=== PATIENT | female | born 1975 | race Caucasian/White ===

== ENCOUNTER 2024-05-20 08:26 | Day surgery (SDC) | payer BC ==
[2024-05-20] VITALS (10 sets, daily range): BP systolic 103–122; BP diastolic 67–90; PULSE 68–78; RESP 14–16; TEMP 97.9; O2SAT 93–96
[~2024-05-20] VITALS: Ht 157.5 cm; Wt 94.5 kg
[2024-05-20] MEDS ORDERED: VITD400T PO (09:17)
[2024-05-20] MEDS ORDERED: MAGN300C (09:17)
[2024-05-20] MEDS ORDERED: ASPI81TA52 PO (09:18)
[2024-05-20] MEDS ORDERED: HYDR12.55 PO (09:19)
[2024-05-20] MEDS ORDERED: ACET-1008 PO (09:23)
[2024-05-20 09:54] LABS: BASOPHILS % (AUTO) 0.9 % (0-1); EOSINOPHILS # (AUTO) 0.1 X10'3 (0-0.9); EOSINOPHILS % (AUTO) 2.4 % (0-6); HEMATOCRIT 44.8 % (35.0-45.0); HEMOGLOBIN 15.4 g/dl (12.0-16.0); LYMPHOCYTES # (AUTO) 1.7 X10'3 (1.1-4.8); LYMPHOCYTES % (AUTO) 35.1 % (21-51); MEAN CORPUSCULAR HEMOGLOBIN 32.8 PG (27.0-31.0); MEAN CORPUSCULAR HGB CONC 34.3 g/dL (33.0-36.5); MEAN CORPUSCULAR VOLUME 95.8 FL (78-98); MONOCYTES # (AUTO) 0.5 X10'3 (0-0.9); MONOCYTES % (AUTO) 10.6 % (2-12); NEUTROPHILS # (AUTO) 2.4 X10'3 (1.8-7.7); PLATELET COUNT 258 X10'3 (140-440); RED BLOOD COUNT 4.68 X10'6 (4.20-5.60); RED CELL DISTRIBUTION WIDTH 13.5 % (11.5-14.5); WHITE BLOOD COUNT 4.7 X10'3 (4.5-11.0)
[2024-05-20 10:08] LABS: APTT 25 SECONDS (22-32); PROTHROMBIN TIME 10.1 SECONDS (9.0-12.0)
[2024-05-20 10:57] LABS: ALBUMIN 3.6 G/DL (3.4-5.0); ANION GAP 8 (8-16); BLOOD UREA NITROGEN 12 MG/DL (7-18); BUN/CREATININE RATIO 14.8 (10.0-20.0); CALCIUM 8.5 MG/DL (8.5-10.1); CHLORIDE 102 MMOL/L (99-107); CHOL/HDL RATIO 3.1 (0.00-4.99); CHOLESTEROL 228 MG/DL (0-200); CREATININE 0.81 MG/DL (0.40-0.90); GLUCOSE 86 MG/DL (70-104); HDL CHOLESTEROL 73 MG/DL (35-60); LDL CHOLESTEROL 134 MG/DL (50-100); POTASSIUM 3.4 MMOL/L (3.5-5.1); SODIUM 139 MMOL/L (135-145); TOTAL CARBON DIOXIDE 29.1 MMOL/L (24-32); TRIGLYCERIDES 56 MG/DL (20-135); eCRCL 66 ML/MIN; eGFR 75 ML/MIN
[2024-05-20] MEDS ORDERED: verapamil 2.5 mg/ml inj IV ONE (11:52)
[2024-05-20] MEDS ORDERED: midazolam 1 mg/ML 2ml injection ONE ×2 (11:52→13:04)
[2024-05-20] MEDS ORDERED: LIDOcaine 1% (10mg/ml) 2ml vial ONE (11:52)
[2024-05-20] MEDS ORDERED: iohexol 350MG/ML 100ml bottle IV ONE (11:53)
[2024-05-20] MEDS ORDERED: heparin 1,000unit/ml 10ml vial 10 ML ONE (11:53)
[2024-05-20] MEDS ORDERED: fentaNYL/PF 50MCG/1 ML 2ML syringe ONE (11:53)
[2024-05-20] MEDS ORDERED: nitroGLYCERIN 500mcg/5mL D5W 5 ML IV ONE (11:54)
[2024-05-20] MEDS: normal saline 1,000 ML IV SCH (11:57)
[2024-05-20] MEDS: LORazepam 0.5 MG tablet PO PRN (11:57)
[2024-05-20] MEDS: diphenhydrAMINE 25mg capsule PO PRN (11:57)
[2024-05-20] MEDS ORDERED: LIDOcaine 1% 30ml preserv. free vial ONE (13:01)
[2024-05-20] MEDS ORDERED: HYDROcodone/acetaminophen 10/325mg tab PO PRN (15:30)
[2024-05-20] MEDS ORDERED: HYDROcodone/acetaminophen 5mg/325mg tablet PO PRN (15:30)
== END 2024-05-20 17:05 | disposition home or self-care (01) ==
LOC: SSTAY O 08:26
PROVIDERS: ATTEND Student in an Organized Health Care Education/Training Program
DX: R94.39 Abnormal result of other cardiovascular function study (principal); I10 Essential (primary) hypertension; E66.9 Obesity, unspecified; Z85.42 Personal history of malignant neoplasm of other parts of uterus; Z79.82 Long term (current) use of aspirin; Z79.899 Other long term (current) drug therapy; Z68.38 Body mass index [BMI] 38.0-38.9, adult; Z91.011 Allergy to milk products; Z88.8 Allergy status to other drugs, medicaments and biological substances; Z82.49 Family history of ischemic heart disease and other diseases of the circulatory system
CPT/HCPCS: 36415; 80048; 80061; 85025; 85610; 85730; 93005; 93458; 99152; J1644; J2003; J2250; J3010; J3490; J7030; Q0163; Q9967; 99153; A6258; C1760; C1769; C1894